=== PATIENT | female | born 1940 | race Caucasian/White ===

== ENCOUNTER → 2020-12-17 | Outpatient (CLI) | payer MEDICARE ==
[~2020-12-17] MED LIST: ELIQUIS2.5 MG PO; IBUPROFEN800 MG PO; NORCO 7.5-3251 EACH PO; NORVASC 5 MG TAB5 MG PO; PROAIR HFA8.5 GM INH
== END ==
LOC: KOH-I 15:11
DX: Z01.818 Encounter for other preprocedural examination (principal)
CPT/HCPCS: 71046

== ENCOUNTER 2021-03-21 10:00 | Emergency (ER) | payer MEDICARE | END 2021-03-21 13:11 | disposition home or self-care (01) | LOC: ER1 10:00 | DX: M79.645 Pain in left finger(s) (principal); I10 Essential (primary) hypertension; E78.5 Hyperlipidemia, unspecified | CPT/HCPCS: 73130; 99283 ==